=== PATIENT | male | born 1945 | race Caucasian/White ===

== ENCOUNTER 2019-03-11 13:46 | Inpatient (IN) ==
[2019-03-11] MEDS ORDERED: ZOFRAN IV PRN (15:13)
[2019-03-11] MEDS: NEXIUM IV SCH ×2 (15:47→16:11)
[2019-03-11] MEDS: NS 1,000 ML IV SCH (15:47)
[2019-03-11] MEDS: SODIUM CHLORIDE 0.9% INJ SCH (15:47)
[2019-03-11 16:03] LABS: BASO# 0.11 X1000 (0.0-0.2); BASO% 0.8 % (0.0-0.8); EOS% 1.4 % (0.0-10.0); HEMATOCRIT 34.8 % (42.0-52.0); HEMOGLOBIN 11.5 g/dL (14.0-18.0); IMM GRAN# 0.05 X1000 (0.0-0.04); IMM GRAN% 0.4 % (0.0-0.5); LYMPH# 4.54 X1000 (1.2-3.4); LYMPH% 31.9 % (20.5-51.1); MCH 30.7 PG (27-31); MONO# 0.71 X1000 (0.11-0.59); MPV 9.7 FL (7.4-10.4); NEUT# 8.62 X1000 (1.4-6.5); NEUT% 60.5 % (42.2-75.2); PLT 346 X1000 (130-400); RBC 3.74 XMIL (4.7-6.1); RDW 13.1 % (11.5-14.5); WBC 14.23 X1000 (4.8-10.8)
[2019-03-11 16:27] LABS: INR 0.97; PROTIME 13.7 Seconds (11.0-16.0); PTT 26.9 Seconds (22.3-41.8)
[2019-03-11 16:34] LABS: AGAP 12; ALB/GLOB RATIO 1.4; ALBUMIN 3.4 g/dL (3.5-5.0); ALKALINE PHOSPHATASE 75 U/L (32-122); BUN 24 mg/dL (8-22); CALCIUM 8.3 mg/dL (8.8-10.2); CHLORIDE 103 mmol/L (98-107); COSMO 280; CREATININE 0.9 mg/dL (0.7-1.2); ESTIMATED GFR > 60; GLUCOSE 73 mg/dL (70-104); GOT 14 U/L (10-34); GPT 8 U/L (10-44); POTASSIUM 4.2 mmol/L (3.5-5.1); SODIUM 139 mmol/L (136-145); TCO2 24 mmol/L (25-35); TOTAL BILIRUBIN 0.44 mg/dL (0.20-1.00); TOTAL PROTEIN 5.8 g/dL (6.3-8.3)
[2019-03-11] MEDS: ZOCOR PO SCH (21:05)
[2019-03-11] MEDS: COREG PO SCH (21:05)
--- NOTE | 2019-03-11 22:09 | HISTORY AND PHYSICAL ---
PRIMARY CARE PHYSICIAN: Dr. Husam Tuttle. CHIEF COMPLAINT: Bloody stools. HISTORY OF PRESENT ILLNESS: A 73-year-old white male with a complicated past medical history presents for evaluation of above-mentioned symptoms. Current history of present illness began yesterday. Patient states he awoke at 6 a.m. in his usual state of health. Patient states he drank a cup of coffee followed by breakfast at approximately 8 a.m. Soon thereafter, patient went to get dressed for alevism. Upon dressing, he noted mild dizziness, but continued with his plan to attend alevism. About 10 to 15 minutes prior to the end of the alevism service, patient again developed dizziness. He was assisted by his [id number] to her vehicle. He was driven home. Upon arrival home, patient states that he developed acute abdominal discomfort followed by "black stool" and associated red blood in the toilet. He noted his abdominal discomfort improved after this occurred. Since that time, patient has experienced 3 additional episodes of "black stools." The consistency of the stool is formed, but with some characteristics of tar. He currently complains of fatigue, but denies active dizziness, fevers, abdominal pain, nausea, and vomiting. Patient will be admitted to the hospital for full evaluation and management of a GI bleed. PAST MEDICAL HISTORY: 1. Abnormal electrocardiogram with right axis, possible right ventricular hypertrophy or posterior fascicular block and poor R-wave progression. 2. Aortic valve sclerosis. 3. Colonic diverticulosis. 4. History of lower extremity edema after coronary artery bypass grafting in 2008. 5. Reflux disease. 6. Hypertension. 7. Hyperlipidemia. 8. Impaired fasting glucose. 9. Ischemic heart disease status post hybrid coronary artery bypass grafting with stenting in 2008. 10. History of chronic leukocytosis. 11. Low HDL. 12. History of tobacco use. 13. Osteoarthritis. 14. Overweight. 15. History of an obstructing duodenal ulcer requiring surgical intervention with open gastrojejunostomy in 2014. 16. History of colonic polyps. 17. Chronic rosacea. 18. History of multiple basal cell carcinomas, squamous cell carcinomas, and actinic keratoses. CURRENT MEDICATIONS: 1. Aspirin 81 mg at bedtime. 2. Carvedilol 6.25 mg twice daily. 3. Claritin 10 mg daily as needed. 4. Clopidogrel 75 mg daily. 5. Coenzyme Q10 100 mg daily. 6. Losartan 50 mg twice daily. 7. Nexium 40 mg daily. 8. [place]-3 1200 mg twice daily. 9. Simvastatin 20 mg at bedtime. ALLERGIES: Patient answered no known drug allergies. SOCIAL HISTORY: Patient previously smoked 3 packs per day for 50 years. He stopped in 2007. He rarely uses alcohol and denies illicit drug use. He is retired from the [employer] department at [employer]. He enjoys reading, fishing, golf and swimming. FAMILY HISTORY: Patient's father passed at age 39 secondary to complications of metastatic colon cancer. Patient's mother passed secondary to complications of bone marrow pathology at age 88. She had a history of diabetes, hypertension, schizophrenia, and hyperlipidemia. REVIEW OF SYSTEMS: A 12 point review of systems was performed. Pertinent positives and negatives are noted history present illness. PHYSICAL EXAMINATION: Temperature 98 degrees, heart rate 77, respirations 18, blood pressure is 130/73. GENERAL: Well nourished, well developed, no acute distress. HEENT: Normocephalic, atraumatic. Pupils equal, round, react to light. Extraocular muscles intact. Sclerae anicteric. [place] conjunctivae. Oral and nasopharynx clear without exudate. NECK: Supple. No lymphadenopathy. No thyromegaly. No bruits auscultated. CARDIOVASCULAR: Regular rate and rhythm. No significant murmurs, rubs, or gallops. PULMONARY: Clear to auscultation bilaterally. ABDOMEN: Soft, nontender, nondistended. Positive bowel sounds. EXTREMITIES: Moves all extremities well. No significant clubbing, cyanosis, or edema. DERMATOLOGIC: Evaluation reveals no evidence of rash. LABORATORY DATA: White blood cell count 14.23, hemoglobin 11.5, hematocrit 34.8, platelet count 346,000. PT 13.7, INR 0.97, PTT is 26.9. Sodium 139, potassium 4.2, chloride 103, bicarb 24, BUN 24, creatinine 0.9, glucose 73, calcium 8.3, total bilirubin 0.44, total protein 5.8, albumin 3.4, alkaline phosphatase 75, AST 14, ALT 8. ASSESSMENT AND PLAN: A 73-year-old white male with a complicated past medical history presents for evaluation of gastrointestinal bleed. Patient's hemoglobin and hematocrit have dropped from a baseline of 14.3 and 43.5. Black/maroon stool was noted on rectal examination in my office. Because of his prolonged upper gastrointestinal ulcerative disease history, I do feel that aggressive management is appropriate. Patient will be admitted to the ICU with Dr. Jarquin in consult. We will plan procedural evaluation intervention as soon as possible. 1. Admit to ICU. 2. Gastrointestinal bleed-I suspect this is upper in etiology. With the maroon discoloration and the intermittent red blood, certainly a right-sided colon bleed will also need to be considered. The patient's hemoglobin and hematocrit have dropped considerably. For this reason, patient will be monitored closely in the ICU until further evaluation and management can be arranged. 3. Dizziness-this likely was a consequence of his gastrointestinal bleed. We will follow this clinically. 4. History of ischemic heart disease-the patient's aspirin, Plavix, and simvastatin will be held in the setting of a GI bleed. We will continue optimize medical management otherwise. 5. Reflux disease-we will change patient's Nexium to IV Nexium q.12 hours. This will be followed. 6. Hypertension-the patient's losartan will be held secondary to his GI bleed. We will plan to resume this when appropriate. 7. Hyperlipidemia-we will continue simvastatin therapy. 8. Fluid, electrolytes, nutrition. We will monitor electrolytes. Normal saline at KVO. Clear liquid diet. 9. Prophylaxis. Patient will be placed on SCDs. cc: Husam Tuttle MD
[2019-03-12] MEDS: NEXIUM IV SCH ×2 (04:20→16:15)
[2019-03-12 04:50] LABS: BASO# 0.07 X1000 (0.0-0.2); BASO% 0.8 % (0.0-0.8); EOS# 0.24 X1000 (0.0-0.7); EOS% 2.7 % (0.0-10.0); HEMATOCRIT 32.5 % (42.0-52.0); HEMOGLOBIN 10.6 g/dL (14.0-18.0); IMM GRAN# 0.02 X1000 (0.0-0.04); IMM GRAN% 0.2 % (0.0-0.5); LYMPH# 3.33 X1000 (1.2-3.4); MCH 29.8 PG (27-31); MCHC 32.6 g/dL (33-37); MCV 91.3 FL (81-99); MONO# 0.61 X1000 (0.11-0.59); MONO% 6.8 % (1.7-9.3); MPV 9.7 FL (7.4-10.4); NEUT# 4.73 X1000 (1.4-6.5); NEUT% 52.5 % (42.2-75.2); PLT 274 X1000 (130-400); RBC 3.56 XMIL (4.7-6.1)
[2019-03-12 05:07] LABS: AGAP 8; ALB/GLOB RATIO 1.2; ALBUMIN 3.1 g/dL (3.5-5.0); ALKALINE PHOSPHATASE 66 U/L (32-122); BUN 17 mg/dL (8-22); CALCIUM 8.6 mg/dL (8.8-10.2); CHLORIDE 108 mmol/L (98-107); COSMO 284; CREATININE 0.8 mg/dL (0.7-1.2); ESTIMATED GFR > 60; GLUCOSE 80 mg/dL (70-104); GOT 15 U/L (10-34); GPT 8 U/L (10-44); POTASSIUM 3.8 mmol/L (3.5-5.1); SODIUM 142 mmol/L (136-145); TCO2 26 mmol/L (25-35); TOTAL BILIRUBIN 0.45 mg/dL (0.20-1.00); TOTAL PROTEIN 5.6 g/dL (6.3-8.3)
[2019-03-12] MEDS: COREG PO SCH ×2 (09:23→21:24)
[2019-03-12] MEDS: NS 1,000 ML IV SCH (11:20)
[2019-03-12] MEDS ORDERED: DIPRIVAN 1% ONE (14:12)
--- NOTE | 2019-03-12 14:38 | ENDOSCOPY OPERATIVE NOTE ---
[facility] ENDOSCOPY OPERATIVE NOTE , PATIENT: Gaston Kingsley ADMISSION DATE: 03/12/2019 MR#: [id number] : 1945 [facility] #: [id number] EGD PROCEDURE REPORT PROCEDURE DATE: 03/12/2019 SURGEON: Oz Jarquin MD STATUS: inpatient [employer]ING [employer] OPERATOR: Phong Mix and Kajal Uribe PREOPERATIVE DIAGNOSIS: The patient is a 73 yr old male here for an EGD due to melena, hematochezia, and acute post hemorrhagic anemia. PROCEDURE PERFORMED: EGD, diagnostic MEDICATIONS: Per Anesthesia TOPICAL ANESTHETIC: none CONSENT: The patient understands the risks and benefits of the procedure and understands that these r isks include, but are not limited to: sedation, allergic reaction, infection, perforation and/or bleeding. Alternative means of evaluation and treatment include, among others: physical exam, x-rays, and/or surgical intervention. The patient elects to proceed with this endoscopic procedure. HISORY AND PHYSICAL: 03/12/2019 function. Hand hygiene and appropriate measures for infection prevention was taken. After the risks, benefits and alternatives of the procedure were thoroughly explained, Informed consent was verified, confirmed and timeout was successfully executed by the treatment team. The patient was anesthetized with topical anesthesia and the [id number]-[id number] ([id number]) endoscope was introduced through the mouth and advanced to the proximal jejunum. Retroflex ion was performed in the stomach and revealed no abnormalities. The gastroscope was then slowly withdrawn and removed. ESOPHAGUS: The mucosa of the esophagus appeared normal. There was no evidence of Hiatal hernia, ulc er, tumor or varices. STOMACH: A gastroenterostomy was found on the lesser curvature of the stomach characterized as health y in appearance. There were visible winnie. There was no evidence of AVM, Ulcer, tumor or masses noted. DUODENUM: A large diverticulum was found in the 2nd part of the duodenum. There was no evidence of AVM, Ulcer, tumor or masses seen. JEJUNUM / ILEUM: The mucosa appeared normal in the jejunum and ileum. SPECIMENS REMOVED: No ADVERSE EVENTS: There were no complications. POSTOPERATIVE DIAGNOSIS: 1. The mucosa of the esophagus appeared normal 2. Gastroenterostomy was found on the lesser curvature of the stomach 3. Diverticulum was found in the 2nd part of the duodenum 4. The mucosa appeared normal in the jejunum and ileum RECOMMENDATIONS: 1. Resume pre-procedure medications 2. Transfer to floor 3. Start Full liquid diet for 1 Day(s) 4. Resume current medications REPEAT EXAM: Oz Jarquin MD eSigned: Oz Jarquin MD 03/12/2019 2:38 PM cc: Husam Tuttle MD PATIENT NAME: Gaston Kingsley MR#: [id number]
[2019-03-12] MEDS: SODIUM CHLORIDE 0.9% INJ SCH (16:16)
--- NOTE | 2019-03-12 17:28 | GASTROENTEROLOGY CONSULTATION ---
DATE: 03/12/2019 REASON FOR CONSULTATION: Rectal bleeding. HISTORY OF PRESENT ILLNESS: This is a 73-year-old male who reports onset of symptoms on Monday. Patient states he woke up Monday morning and had coffee and breakfast before mormonism. He did not have a bowel movement before mormonism. When he went to get a shower to get ready for mormonism, he did notice some dizziness. He went on to mormonism, and during the service, he had worsening dizziness and blurred vision. He went back home. He had an urgency to have a bowel movement and noticed dark black stools. He did have some formed stool mixed with loose stool. He reported multiple episodes of black stools. He denied nausea or vomiting. No hematemesis. He denied abdominal pain but reported bowel urgency. He does take aspirin and Plavix. His last Plavix was Monday morning. The patient has had a recent EGD and colonoscopy by Dr. Jarquin in August of this year. Findings show bile in the esophagus and evidence of gastrojejunostomy. Colonoscopy showed moderate diverticulosis with no evidence of colon polyps. PAST MEDICAL HISTORY: Aortic valve stenosis, GERD, hypertension, hyperlipidemia, impaired glucose, ischemic heart disease, status post coronary artery bypass graft and stenting in 2008, osteoarthritis. Patient has a history of duodenal ulcer in 2014 that required surgery. History of basal cell carcinoma and squamous cell carcinoma. PAST SURGICAL HISTORY: Coronary artery bypass graft in 2008, abdominal surgery for ulcer in 2014. ALLERGIES: No known drug allergies. HOME MEDICATIONS: 1. Aspirin 81 mg daily. 2. Dulcolax 10 mg per rectum daily as needed. 3. Coreg 6.25 mg twice a day. 4. Plavix 75 mg daily. 5. Nexium 40 mg daily. 6. Claritin 10 mg daily as needed. 7. Zocor 20 mg every night. SOCIAL HISTORY: History of tobacco use, stopped in 2007. Occasional alcohol use. He is retired. REVIEW OF SYSTEMS: Per History of Present Illness. PHYSICAL EXAMINATION: Vital Signs: Temperature 97.9, pulse 73, respirations 14, blood pressure 119/73. General: Patient is awake and alert, in no acute distress. HEENT: Normocephalic, atraumatic. Pupils equal, round, reactive to light. Sclerae nonicteric. Cardiovascular: Regular rate and rhythm. Pulmonary: Lung sounds essentially clear bilaterally. Abdomen: Soft, nontender. Positive bowel sounds. Extremities: No lower extremity edema noted. Neurologic: Cranial nerves 2-12 grossly intact. Patient is awake and alert, oriented to person, place and time. DIAGNOSTIC RESULTS: LABORATORY: Hematology: WBC 9.0, hemoglobin 10.6, hematocrit 32.5, MCV 91.3, platelets 274,000. Coagulation: Pro time 13.7, INR 0.97, PTT 26.9. Chemistry: Sodium 142, potassium 3.8, chloride 108, CO2 26, BUN 17, creatinine 0.8, glucose 80, total bilirubin 0.45, AST 15, ALT 8, alkaline phosphatase 66. ASSESSMENT AND PLAN: 1. Gastrointestinal bleeding with melena. 2. Dizziness. 3. Anemia. 4. History of anticoagulation, Plavix and aspirin which have been held. Continue to monitor for further active bleeding. Monitor hemoglobin and hematocrit and transfuse packed red blood cells if needed. Will proceed with EGD today. I have explained the procedure, along with benefits and risks to the patient and his daughter. They wish to proceed. Further plans to be made according to findings. I have discussed this case with Dr. Jarquin. Dictated by HEIDY Schaefer for Oz Jarquin MD cc: HEIDY Chahal MD Scott A. Matthews, MD
--- NOTE | 2019-03-12 21:05 | PROGRESS NOTE ---
DATE: 03/12/2019 SUBJECTIVE: The patient was admitted yesterday with a GI bleed. Hemoglobin and hematocrit dropped to 10.6 and 32.5 from a baseline of approximately 14 and 35. The patient was placed NPO this morning. Patient was taken for EGD. EGD revealed no evidence of acute bleeding. Throughout the day today, patient states he did reasonably well. His bowel movements have slowed down. He denies fevers, chills, nausea, vomiting, shortness of breath, or chest discomfort. OBJECTIVE: T-max 98.1, heart rate 67 to 113, respirations 17 to 25, blood pressure 105 to 139 over 56 to 73.General: No acute distress. Cardiovascular: Regular rate and rhythm. No significant murmurs, rubs, or gallops. Pulmonary: Clear to auscultation bilaterally. Abdomen: Soft, nontender, nondistended. Positive bowel sounds. Extremities: Moves all extremities well. No significant clubbing, cyanosis, or edema. Dermatologic: Evaluation reveals no evidence of rash. LABORATORY DATA: White blood cell count 9.00, hemoglobin 10.6, hematocrit 32.5, platelet count 274,000. Sodium 142, potassium 3.8, chloride 108, bicarb 26, BUN 17, creatinine 0.8, glucose 80, calcium 8.6, total bilirubin 0.45, total protein 5.6, albumin 3.1, alkaline phosphatase 66. AST 15. ALT 8. ASSESSMENT AND PLAN: 1. Gastrointestinal bleed - As above, esophagogastroduodenoscopy returned negative. This would suggest a right-sided colonic lesion in the setting of black/maroon stools. The patient's hemoglobin and hematocrit have dropped considerably, but not to the point of needing transfusion. Vital signs remained stable. Over the course of the last 24 hours, the patient's bleeding apparently has decreased with decreased bowel movements. For now, we will continue supportive care. We will hold aspirin and Plavix. Should patient continue to have episodes of melena/maroon stools, we will plan colonoscopic intervention. If not, we will plan conservative treatment. 2. Dizziness - The patient has achieved stabilization while hospitalized. We will remain aware. 3. History of ischemic heart disease - The patient's aspirin, Plavix, and fish oil have been held in the setting of a gastrointestinal bleed. Patient is asymptomatic. We will otherwise continue his optimized medical management. 4. Hypertension - The patient's losartan has been held in the setting of a gastrointestinal bleed. We will resume this once blood pressure recovers. 5. Hyperlipidemia - We will continue patient on simvastatin therapy. 6. Disposition - At this point, the patient continues to require fpc care in a hospital setting. We will plan discharge home once appropriate. cc: Husam Tuttle MD
[2019-03-12] MEDS: ZOCOR PO SCH (21:24)
[2019-03-13] MEDS: NS 1,000 ML IV SCH (07:17)
[2019-03-13 07:31] LABS: BASO# 0.06 X1000 (0.0-0.2); BASO% 0.6 % (0.0-0.8); EOS# 0.32 X1000 (0.0-0.7); HEMATOCRIT 35.2 % (42.0-52.0); HEMOGLOBIN 11.5 g/dL (14.0-18.0); IMM GRAN# 0.02 X1000 (0.0-0.04); IMM GRAN% 0.2 % (0.0-0.5); LYMPH# 3.27 X1000 (1.2-3.4); LYMPH% 30.4 % (20.5-51.1); MCH 29.7 PG (27-31); MCHC 32.7 g/dL (33-37); MONO# 0.77 X1000 (0.11-0.59); MONO% 7.1 % (1.7-9.3); MPV 9.7 FL (7.4-10.4); NEUT# 6.33 X1000 (1.4-6.5); NEUT% 58.7 % (42.2-75.2); PLT 279 X1000 (130-400); RBC 3.87 XMIL (4.7-6.1); RDW 12.8 % (11.5-14.5); WBC 10.77 X1000 (4.8-10.8)
[2019-03-13 07:58] LABS: AGAP 13; ALB/GLOB RATIO 1.2; ALBUMIN 3.2 g/dL (3.5-5.0); ALKALINE PHOSPHATASE 75 U/L (32-122); BUN 12 mg/dL (8-22); CALCIUM 8.8 mg/dL (8.8-10.2); CHLORIDE 105 mmol/L (98-107); COSMO 279; CREATININE 0.9 mg/dL (0.7-1.2); ESTIMATED GFR > 60; GLUCOSE 87 mg/dL (70-104); GOT 18 U/L (10-34); GPT 9 U/L (10-44); POTASSIUM 4.3 mmol/L (3.5-5.1); SODIUM 140 mmol/L (136-145); TCO2 22 mmol/L (25-35); TOTAL BILIRUBIN 0.58 mg/dL (0.20-1.00); TOTAL PROTEIN 5.9 g/dL (6.3-8.3)
[2019-03-13] MEDS: COREG PO SCH (08:09)
[2019-03-13] MEDS ORDERED: NEXIUM PO SCH (09:00)
--- NOTE | 2019-03-13 14:58 | GASTROENTEROLOGY PROGRESS NOTE ---
DATE: 03/13/2019 SUBJECTIVE: The patient is awake and alert. He is in no acute distress. He is wanting to go home. He reports no further active bleeding. He did have a bowel movement today that was color blender in color. He tolerated a full liquid diet. OBJECTIVE: Vital Signs: Temperature 97.5 degrees, pulse 75, respirations 19, blood pressure 105/65. General: The patient is awake and alert, in no acute distress. Laboratory: Hemoglobin 11.5, hematocrit 35.2. EGD findings on 03/12/2019 showed a normal esophagus, evidence of gastroenterostomy at the lesser curvature of the stomach, and healthy appearance. Visible winnie noted. A large diverticulum in the second part of the duodenum. Otherwise, normal jejunum and ileum. ASSESSMENT AND PLAN: 1. Recent melena. 2. Mild anemia, stable. Patient has not required blood transfusion. No evidence of active bleeding by EGD. PLAN: Continue PPI. Advance diet. Dr. Jarquin recommends resuming Aspirin but hold Plavix for now. Follow up in the office in 2-3 weeks. I have discussed this case with Dr. Jarquin. Dictated by HEIDY Schaefer for Oz Jarquin MD cc: HEIDY Chahal MD Scott A. Matthews, MD MTDD
[2019-03-13 15:18] VITALS: BP 139/74
--- NOTE | 2019-03-14 12:15 | DISCHARGE SUMMARY ---
ADMISSION DATE: 03/11/2019 DISCHARGE DATE: 03/13/2019 ADMISSION DIAGNOSIS: Bloody stools. DISCHARGE DIAGNOSES: 1. Gastrointestinal bleed, likely secondary to small intestine or colonic etiology. 2. Dizziness, improved. 3. History of ischemic heart disease, aware. 4. Hypertension, present on arrival. 5. Hyperlipidemia, present on arrival. CONSULTATIONS: Dr. Jarquin with Gastroenterology was consulted for further evaluation and management of bloody stools. PROCEDURES: EGD was performed on 03/12/2019 which revealed mucosa of the esophagus appeared normal. Gastroenterostomy was found on the lesser curvature of the stomach. Diverticulum was found in the second part of the duodenum. Mucosa appeared normal in the jejunum and ilium. HISTORY AND PHYSICAL EXAMINATION: See admit note. PHYSICAL EXAMINATION PRIOR TO DISCHARGE: Vital Signs: Temperature 97.3 degrees, heart rate 72, respirations 18, and blood pressure is 139/74. General: Well nourished, well developed in no acute distress. Cardiovascular: Regular rate and rhythm. No significant murmurs, rubs, or gallops. Pulmonary: Clear to auscultation bilaterally. Abdomen: Soft, nontender, and nondistended. Positive bowel sounds. Extremities: Moves all extremities well. No significant clubbing, cyanosis, or edema. Dermatologic: Evaluation reveals no evidence of rash. LABORATORY DATA: White blood cell count 10.77, hemoglobin 11.5, hematocrit 35.2, and platelet counts 279,000. Sodium 140, potassium 4.3, chloride 105, bicarb 22, BUN 12, creatinine 0.9, glucose 89, calcium 8.8, total bilirubin 0.58, total protein 5.9, albumin 3.2, alkaline phosphatase 75, AST 18, and ALT 9. HOSPITAL COURSE: Patient was admitted as per history and physical examination. Hospital Course per condition is as follows. 1. Gastrointestinal bleed-Upon admission, patient was noted to have black/maroon colored stools. Hemoglobin and hematocrit were noted to be considerably dropped. The patient was placed in the ICU. IV fluids were initiated. Dr. Jarquin was consulted. Nexium IV was initiated. On day 2 of hospitalization, patient was taken for an EGD. No evidence of active bleeding was identified. While hospitalized, patient's vital signs stabilized. He had no further evidence of bleeding. At this point, with patient having had a colonoscopy in August, further evaluation and intervention was not deemed warranted as his condition had stabilized. The patient will be discharged home with close follow up. We will resume aspirin therapy tomorrow. We will hold his Plavix and fish oil for 1 additional week. Patient has been instructed should he develop any evidence of bleeding, he is to contact me immediately. 2. Dizziness-Patient achieved improvement while hospitalized. This likely was a consequence of his acute bleed. 3. History of ischemic heart disease-upon admission, patient was treated with aspirin, Plavix, and fish oil therapy. As described above, each were held while hospitalized. We will resume aspirin tomorrow. We will resume Plavix and fish oil in 1 week. Otherwise, we will continue his optimized medical management. He is asymptomatic. 4. Hypertension-The patient's losartan was held while hospitalized. The patient's blood pressure remained reasonably controlled. I have asked patient to resume losartan 50 mg daily as his systolic blood pressure is consistently above 130. If this remains above 130, we will plan to resume losartan twice daily thereafter. 5. Hyperlipidemia-Patient was continued on simvastatin therapy while hospitalized. DISCHARGE CONDITION: Good DISPOSITION: Discharge to home. MEDICATIONS: 1. Coenzyme Q10 100 mg daily. 2. Cozaar 50 mg twice daily (see above discussion for titration of dosing). 3. Fish Oil 1200 mg daily to be resumed on 03/20/2019. 4. Dulcolax 10 mg p.r.n. 5. Coreg 6.25 mg twice daily. 6. Claritin 10 mg daily as needed. 7. Simvastatin 20 mg at bedtime. 8. Nexium 40 mg daily. 9. Aspirin 81 mg daily to be to resumed tomorrow. 10. Clopidogrel 75 mg daily to resume on 03/20/2019. FOLLOWUP: The patient is to follow with me in approximately 1 to 2 weeks. Patient to follow with Dr. Jarquin in approximately 2 to 3 weeks. cc: Husam Tuttle MD
== END 2019-03-13 16:42 | disposition home or self-care (01) | DRG 378 ==
LOC: DIRADM 13:46 → 3N 14:39 → DIRADM 14:41 → ICU 14:48 → 3N 03-12 16:45
PROVIDERS: ADMIT Internal Medicine; ATTEND Internal Medicine
CPT/HCPCS: 80053; 85025; 85610; 85730; A9270; J7030